=== PATIENT | male | born 1970 | race Caucasian/White ===

== ENCOUNTER 2017-03-28 09:57 | Inpatient (IN) | payer BC ==
[~2017-03-28] VITALS: Ht 193 cm; Wt 133.8 kg
[2017-03-28] MEDS ORDERED: cefOXitin SODIUM 2 GM in D5W 100 ML IV ONE (10:15)
[2017-03-28] MEDS ORDERED: KETOROLAC TROMETHAMINE 30 MG VIAL IVP ONE ×2 (11:21)
[2017-03-28] MEDS ORDERED: MIDAZOLAM HCL 5 MG/5 ML VIAL IVP ONE (11:21)
[2017-03-28] MEDS ORDERED: BUPIVACAINE LIPOSOME/PF 266 MG/20 ML VIAL INFIL ONE (11:21)
[2017-03-28] MEDS ORDERED: ONDANSETRON HCL 4 MG/2 ML VIAL IVP ONE ×2 (11:21)
[2017-03-28] MEDS ORDERED: PROPOFOL 200MG/ 20ML VIAL (DIPRIVAN) IV ONE (11:21)
[2017-03-28] MEDS ORDERED: SEVOFLURANE 15 MIN GAS INH ONE (11:21)
[2017-03-28] MEDS ORDERED: fentaNYL CITRATE 250 MCG/5 ML AMP IV ONE (11:21)
[2017-03-28] MEDS ORDERED: ROCURONIUM BROMIDE 10 MG/ML (ZEMURON) IV ONE (11:21)
[2017-03-28] MEDS ORDERED: NEOM500T PO (11:25)
[2017-03-28] MEDS ORDERED: LR 1,000 ML IV SCH (12:21)
[2017-03-28] MEDS ORDERED: ONDANSETRON HCL 4 MG/2 ML VIAL IVP PRN ×2 (12:30→19:15)
[2017-03-28] MEDS ORDERED: KETOROLAC TROMETHAMINE 30 MG VIAL IVP PRN (12:30)
[2017-03-28] MEDS ORDERED: HYDROmorphone 1 MG INJ. 1 MG/ML AMPUL IVP PRN (12:30)
[2017-03-28] MEDS ORDERED: HYDROmorphone 2 MG/ML VIAL IVP PRN ×2 (12:30)
[2017-03-28] MEDS ORDERED: MEPERIDINE HCL/PF 25 MG/ML DISP.SYRIN IVP PRN ×2 (12:30)
[2017-03-28] MEDS ORDERED: HYDROcodone/ACETAMIN 5-325 MG TAB (NORCO/ VICODIN) PO PRN (19:15)
[2017-03-28] MEDS ORDERED: ACETAMINOPHEN 325 MG TABLET PO PRN ×2 (19:15)
[2017-03-28] MEDS ORDERED: MEPERIDINE HCL/PF 25 MG/ML DISP.SYRIN ONE (19:30)
[2017-03-28 21:00] VITALS: BP_SYST 108
[2017-03-28] MEDS: cefOXitin SODIUM 2 GM in D5W 100 ML IV SCH (22:00)
[2017-03-28] MEDS ORDERED: cefOXitin 1 GM IVPB PREMIX 100 ML IV ONE (22:40)
[2017-03-28] MEDS: LR 1,000 ML IV SCH (22:41)
[2017-03-28] MEDS ORDERED: cefOXitin SODIUM 2 GM/VIAL (MEFOXIN) ONE (22:47)
[2017-03-28] MEDS ORDERED: MAG-AL HYDROX/SIMETH 30 ML UDC PO ONE (23:30)
[2017-03-28] MEDS ORDERED: MAG-AL HYDROX/SIMETH 30 ML UDC PO PRN (23:30)
[2017-03-28] MEDS: MORPHINE 4 MG/ML INJ. SYRINGE IVP PRN (23:35)
[2017-03-29 00:19] VITALS: BP_SYST 108
[2017-03-29 04:00] VITALS: BP_SYST 126
[2017-03-29] MEDS: MORPHINE 4 MG/ML INJ. SYRINGE IVP PRN ×2 (05:18→20:56)
[2017-03-29] MEDS: cefOXitin SODIUM 2 GM in D5W 100 ML IV SCH ×2 (05:18→13:09)
[2017-03-29 06:52] LABS: CREATININE 1.2 mg/dL (0.55-1.30); POTASSIUM 4.1 mmol/L (3.5-5.1)
[2017-03-29 06:57] LABS: BASOPHILS % (AUTO) 0.1 % (0.0-2.0); HEMOGLOBIN 11.2 g/dL (14.0-18.0); LYMPHOCYTES # (AUTO) 0.9 K/uL (1.0-5.5); LYMPHOCYTES % (AUTO) 9.3 % (20.5-51.5); MEAN CORPUSCULAR HEMOGLOBIN 30 pg (27-31); MEAN CORPUSCULAR HGB CONC 33 % (32-36); MEAN CORPUSCULAR VOLUME 91 fL (79.0-98.0); MONOCYTES # (AUTO) 1.1 K/uL (0.0-1.0); MONOCYTES % (AUTO) 11.1 % (1.7-9.3); NEUTROPHILS % (AUTO) 79.5 % (40.0-70.0); PLATELET COUNT (AUTO) 251 K/uL (130-430); RED BLOOD CELL COUNT(AUTO) 3.74 MIL/uL (4.2-6.2); RED CELL DISTRIBUTION WIDTH 12.5 % (9.0-15.0)
[2017-03-29 08:00] VITALS: BP_SYST 119
[2017-03-29 09:46] LABS: ABG TOTAL HEMOGLOBIN 11.7 G/dL (12.0-18.0); BLOOD GAS BASE EXCESS -1.6 mmol/L (-3.0-3.0); BLOOD GAS COHb% 0.3 % (0.5-1.5); BLOOD GAS HHB 4.6 % (0.0-6.0); BLOOD GAS PH 7.407 (7.350-7.450); BLOOD O2Hb% 94.6 % (94.0-97.0)
[2017-03-29] MEDS: DOCUSATE SODIUM 100 MG CAPSULE PO SCH ×2 (09:53→20:59)
[2017-03-29] MEDS: HYDROcodone/ACETAMIN 5-325 MG TAB (NORCO/ VICODIN) PO PRN (09:56)
[2017-03-29 11:18] VITALS: BP_SYST 111
[2017-03-29 16:05] VITALS: BP_SYST 118
[2017-03-29] MEDS: LR 1,000 ML IV SCH ×2 (16:18→23:56)
[2017-03-29 20:20] VITALS: BP_SYST 131
[2017-03-30] VITALS: BP_SYST 126
[2017-03-30 04:00] VITALS: BP_SYST 134
[2017-03-30 06:24] LABS: BASOPHILS % (AUTO) 0.4 % (0.0-2.0); EOSINOPHILS % (AUTO) 0.1 % (0.0-4.0); HEMOGLOBIN 9.6 g/dL (14.0-18.0); LYMPHOCYTES # (AUTO) 1.1 K/uL (1.0-5.5); LYMPHOCYTES % (AUTO) 11.6 % (20.5-51.5); MEAN CORPUSCULAR HEMOGLOBIN 30 pg (27-31); MEAN CORPUSCULAR HGB CONC 33 % (32-36); MEAN CORPUSCULAR VOLUME 90 fL (79.0-98.0); MONOCYTES # (AUTO) 0.9 K/uL (0.0-1.0); MONOCYTES % (AUTO) 9.5 % (1.7-9.3); NEUTROPHILS # (AUTO) 7.1 K/uL (1.8-7.7); NEUTROPHILS % (AUTO) 78.4 % (40.0-70.0); PLATELET COUNT (AUTO) 206 K/uL (130-430); RED BLOOD CELL COUNT(AUTO) 3.21 MIL/uL (4.2-6.2); RED CELL DISTRIBUTION WIDTH 12.8 % (9.0-15.0); WHITE BLOOD COUNT (AUTO) 9.1 K/uL (4.8-10.8)
[2017-03-30 06:31] LABS: CALCIUM 8.1 mg/dL (8.4-11.0); POTASSIUM 3.7 mmol/L (3.5-5.1)
[2017-03-30 06:44] LABS: CREATININE 1.13 mg/dL (0.55-1.30); TOTAL BILIRUBIN 0.5 mg/dL (0.0-1.0); TOTAL PROTEIN, SERUM 5.9 g/dL (6.4-8.3)
[2017-03-30 08:00] VITALS: BP_SYST 154
[2017-03-30] MEDS: MORPHINE 4 MG/ML INJ. SYRINGE IVP PRN ×4 (08:02→23:09)
[2017-03-30] MEDS: LR 1,000 ML IV SCH ×2 (08:03→20:23)
[2017-03-30] MEDS: DOCUSATE SODIUM 100 MG CAPSULE PO SCH ×2 (09:13→20:23)
[2017-03-30] MEDS: NORMAL SALINE 5 ML DISP.SYRIN IVF SCH ×2 (14:04→23:09)
[2017-03-30] MEDS: HYDROcodone/ACETAMIN 5-325 MG TAB (NORCO/ VICODIN) PO PRN (15:51)
[2017-03-30 20:28] VITALS: BP_SYST 129
[2017-03-31 00:54] VITALS: BP_SYST 139
[2017-03-31] MEDS: MORPHINE 4 MG/ML INJ. SYRINGE IVP PRN ×3 (02:53→11:55)
[2017-03-31 04:15] VITALS: BP_SYST 139
[2017-03-31] MEDS: NORMAL SALINE 5 ML DISP.SYRIN IVF SCH ×3 (06:16→21:32)
[2017-03-31 06:54] LABS: ALBUMIN 2.7 g/dL (3.4-4.8); CALCIUM 8.3 mg/dL (8.4-11.0); CREATININE 0.9 mg/dL (0.55-1.30); POTASSIUM 3.6 mmol/L (3.5-5.1); TOTAL BILIRUBIN 0.5 mg/dL (0.0-1.0); TOTAL PROTEIN, SERUM 6.1 g/dL (6.4-8.3)
[2017-03-31 07:39] VITALS: BP_SYST 132
[2017-03-31] MEDS: LR 1,000 ML IV SCH (09:04)
[2017-03-31] MEDS: DOCUSATE SODIUM 100 MG CAPSULE PO SCH ×2 (09:04→21:31)
[2017-03-31 12:34] VITALS: BP_SYST 129
[2017-03-31] MEDS: LACTOBACILLUS RHAMNOSUS GG 1 CAP CAPSULE PO SCH ×2 (13:15→21:31)
[2017-03-31] MEDS ORDERED: LACTOBACILLUS RHAMNOSUS GG 1 CAP CAPSULE PO ONE (14:15)
[2017-03-31] MEDS ORDERED: KETOROLAC TROMETHAMINE 30 MG VIAL IM ONE (15:45)
[2017-03-31 16:09] VITALS: BP_SYST 122
[2017-03-31 20:22] VITALS: BP_SYST 129
[2017-03-31] MEDS: KETOROLAC TROMETHAMINE 30 MG VIAL IM SCH ×2 (21:32→21:41)
[2017-04-01 00:08] VITALS: BP_SYST 122
[2017-04-01 03:47] VITALS: BP_SYST 126
[2017-04-01] MEDS: KETOROLAC TROMETHAMINE 30 MG VIAL IM SCH (06:00)
[2017-04-01] MEDS: NORMAL SALINE 5 ML DISP.SYRIN IVF SCH (06:25)
[2017-04-01 09:05] VITALS: BP_SYST 134
[2017-04-01] MEDS: LACTOBACILLUS RHAMNOSUS GG 1 CAP CAPSULE PO SCH (09:07)
[2017-04-01] MEDS: DOCUSATE SODIUM 100 MG CAPSULE PO SCH (09:08)
[2017-04-01 11:32] VITALS: BP_SYST 130
[2017-04-01 15:32] VITALS: BP_SYST 130
[2017-04-01 15:36] VITALS: BP_SYST 127
[2017-04-01] MEDS ORDERED: METOPROLOL TARTRATE 5 MG/5 ML VIAL IVP ONE (16:27)
== END 2017-04-01 16:28 | disposition home or self-care (01) | DRG 330 ==
LOC: SMU 09:57
PROVIDERS: ADMIT Surgery; ATTEND Surgery
PROC: 0DTG4ZZ Resection of Left Large Intestine, Percutaneous Endoscopic Approach (ICD-10-PCS; 2017-03-28)
PROC: 0DNL4ZZ Release Transverse Colon, Percutaneous Endoscopic Approach (ICD-10-PCS; 2017-03-28)
PROC: 8E0W4CZ Robotic Assisted Procedure of Trunk Region, Percutaneous Endoscopic Approach (ICD-10-PCS; principal; 2017-03-28 12:00)
DX: C18.6 Malignant neoplasm of descending colon (principal); C18.5 Malignant neoplasm of splenic flexure; E87.1 Hypo-osmolality and hyponatremia; R55 Syncope and collapse; R56.9 Unspecified convulsions; K66.0 Peritoneal adhesions (postprocedural) (postinfection)
CPT/HCPCS: 36415; 36600; 70450-TC; 74000-TC; 80048; 80053; 82803-TC; 82962; 83735-TC; 85025; 86886; 86900; 86901; 87081; 88307; 88309; 94010; 94640; 95816; 97110-GP; 97116-GP; 97530-GP; C1727; C9290; E0190; J0694; J1885; J2175; J2250; J2270; J2405; J2704; J3010; J3490; J7060; J7120